=== PATIENT | female | born 1990 | race Caucasian/White ===

== ENCOUNTER 2017-10-12 08:53 | Outpatient (CLI) | payer MEDICAID, SELFPAY ==
[2017-10-12 09:17] LABS: HCT 32.9 % (36.0-46.0); HGB 11.3 g/dL (12.0-15.5); Mean Corp. HGB Concentration 34.3 g/dL (32.0-36.0); Mean Corpuscular Hemoglobin 32.8 pg (27.0-33.0); Mean Corpuscular Volume 95.6 fL (80-95); Mean Platelet Volume 9.8 fL (8.0-11.0); Platelet Count 302 x1000/uL (130-400); RBC 3.44 m/cumm (4.00-5.20); RBC Distribution Width 12.6 % (11.7-14.6); White Blood Cell Count 11.36 k/cumm (4.4-10.8)
[2017-10-12 09:24] LABS: Glucose,1 Hr (Glucola) 100 mg/dL (80-140)
== END 2017-10-12 09:13 ==
PROVIDERS: Obstetrics & Gynecology; Obstetrics & Gynecology Gynecology; PCP Family Medicine; Visit Provider Obstetrics & Gynecology
DX: Z34.92 Encounter for supervision of normal pregnancy, unspecified, second trimester (principal)
CPT/HCPCS: 36415; 82950; 85027

== ENCOUNTER 2017-12-14 14:12 | Outpatient (REF) | payer MEDICAID, SELFPAY | END 2017-12-14 14:32 | LOC: LBN 14:12 | PROVIDERS: PCP Family Medicine; Visit Provider Advanced Practice Midwife | DX: Z34.93 Encounter for supervision of normal pregnancy, unspecified, third trimester (principal); Z36.85 Encounter for antenatal screening for Streptococcus B | CPT/HCPCS: 87081 ==

== ENCOUNTER 2017-12-27 11:05 | Observation (INO) | payer MEDICAID, SELFPAY ==
[2017-12-27 11:09] VITALS: BP 142/93; PULSE 97; RESP 20; TEMP 36.6; O2SAT 100
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
[2017-12-27 11:40] VITALS: BP 142/93; PULSE 97; RESP 20; TEMP 36.6; O2SAT 100
== END 2017-12-27 12:40 | disposition home or self-care (01) ==
LOC: ER 11:46 → OBS 11:50
PROVIDERS: Admitting Provider Obstetrics & Gynecology; Emergency Provider Student in an Organized Health Care Education/Training Program; PCP Family Medicine; Visit Provider Obstetrics & Gynecology
DX: O36.8190 Decreased fetal movements, unspecified trimester, not applicable or unspecified (principal)
CPT/HCPCS: 99285; 59025; 99283

== ENCOUNTER 2018-01-02 22:45 | Inpatient (IN) | payer MEDICAID, SELFPAY ==
[2018-01-03 00:06] LABS: ROM Plus Positive
[2018-01-03 00:44] LABS: HCT 33.2 % (36.0-46.0); HGB 11.4 g/dL (12.0-15.5); Mean Corp. HGB Concentration 34.3 g/dL (32.0-36.0); Mean Corpuscular Hemoglobin 31.3 pg (27.0-33.0); Mean Corpuscular Volume 91.2 fL (80-95); Mean Platelet Volume 11.4 fL (8.0-11.0); Platelet Count 223 x1000/uL (130-400); RBC 3.64 m/cumm (4.00-5.20); RBC Distribution Width 13.7 % (11.7-14.6); White Blood Cell Count 9.02 k/cumm (4.4-10.8)
[2018-01-03] MEDS: Normal Saline Flush 10 ML SYR IVP (07:57)
[2018-01-03] MEDS: Lactated Ringers 1,000 ML 125 ML IV ×2 (07:57→15:02)
[2018-01-03] MEDS: Hamamelis Leaf/Glycerin 100 EACH BOX PR (19:01)
[2018-01-04 07:46] LABS: HCT 31.3 % (36.0-46.0); HGB 10.5 g/dL (12.0-15.5); Mean Corp. HGB Concentration 33.5 g/dL (32.0-36.0); Mean Corpuscular Hemoglobin 30.8 pg (27.0-33.0); Mean Corpuscular Volume 91.8 fL (80-95); Mean Platelet Volume 11.8 fL (8.0-11.0); Platelet Count 221 x1000/uL (130-400); RBC 3.41 m/cumm (4.00-5.20); RBC Distribution Width 13.7 % (11.7-14.6); White Blood Cell Count 11.32 k/cumm (4.4-10.8)
--- NOTE | 2018-01-04 11:35 | W.PM.PROGNOT ---
Date of Service Date of service: 01/04/18 Time of Service: 11:35 Assessment and Plan (1) (spontaneous vaginal delivery): Current visit: Yes Status: Acute PPD #1 stable continue routine care (2) Anemia: Start date: 01/04/18 Current visit: Yes Status: Chronic will begin iron and make sure she is on stool softner iron containing foods Subjective Patient reports: no new complaints, tolerating a regular diet and flatus Interval history since last seen: doing well cramping with well light lochia no laceration urinating well without discomfort Exam Const General: cooperative, healthy appearing and comfortable Chest Breast palpation: normal palpation of the breasts Speculum Exam - Vagina: other Other: fundus firm at umbilicus Objective Objective Clinical Data: Abnormal lab results 01/04/18 Range/Units 06:30 WBC 11.32 H (4.4-10.8) k/cumm RBC 3.41 L (4.00-5.20) m/cumm Hgb 10.5 L (12.0-15.5) g/dL Hct 31.3 L (36.0-46.0) % MPV 11.8 H (8.0-11.0) fL Intake & Output 01/03/18 01/03/18 01/04/18 11:59 23:59 11:59 Intake Total 1052.4 / 1052.4 Balance 1052.4 / 1052.4 Weight 70.9 kg Intake: IV 1052.4 / 1052.4 Laboratory Results WBC 11.32 k/cumm (4.4-10.8) H 01/04/18 06:30 RBC 3.41 m/cumm (4.00-5.20) L 01/04/18 06:30 Hgb 10.5 g/dL (12.0-15.5) L 01/04/18 06:30 Hct 31.3 % (36.0-46.0) L 01/04/18 06:30 MCV 91.8 fL (80-95) 01/04/18 06:30 MCH 30.8 pg (27.0-33.0) 01/04/18 06:30 MCHC 33.5 g/dL (32.0-36.0) 01/04/18 06:30 RDW 13.7 % (11.7-14.6) 01/04/18 06:30 Plt Count 221 x1000/uL (130-400) 01/04/18 06:30 MPV 11.8 fL (8.0-11.0) H 01/04/18 06:30 Membranes Rupture Positive 01/02/18 23:20 Patient ABO/Rh B Positive 01/03/18 00:30 Antibody Screen Negative 01/03/18 00:30
[2018-01-04] MEDS: Ibuprofen 600 MG TAB PO (21:49)
== END 2018-01-05 11:55 | disposition home or self-care (01) | DRG 807 ==
PROVIDERS: Obstetrics & Gynecology; Admitting Provider Obstetrics & Gynecology Gynecology; PCP Family Medicine; Visit Provider Obstetrics & Gynecology Gynecology
DX: O42.02 Full-term premature rupture of membranes, onset of labor within 24 hours of rupture (principal); Z37.0 Single live birth; Z3A.39 39 weeks gestation of pregnancy
CPT/HCPCS: 84112; 85027; 86850; 86900; 86901; NC; J3490

== ENCOUNTER 2022-12-24 07:04 | Emergency (ER) | payer MEDICAID, SELFPAY ==
[2022-12-24 07:07] VITALS: BP 153/95; PULSE 66; RESP 22; TEMP 36.6; O2SAT 99
--- NOTE | 2022-12-24 07:15 | DI.CT_ITS ---
Exam(s) CT ABDOMEN PELVIS WO EXAM: CT ABDOMEN PELVIS WO CLINICAL HISTORY: left lower back pain, hx kidney stones. TECHNIQUE: Imaging Protocol: Axial computed tomography images with coronal and sagittal reformatted images were created and reviewed. Oral: / no COMPARISON: None FINDINGS: ABDOMEN: Lung Bases: No acute findings. Liver: Normal density. No measurable mass. Gallbladder and biliary tract: No radiodense calculus or dilation. Pancreas: Normal density, no abnormal calcifications or inflammatory process. Spleen: Normal. Kidneys: Normal size, contour and axis. Six millimeter stone distal left ureter causing mild to mode rate left hydronephrosis. Mild left perinephric stranding. Mild left renal edema. Some stranding a round left renal pelvis no masses seen. Mildly increased density in the medullary region of both ki dneys consistent mild medullary nephrocalcinosis. Left kidney shows duplex collecting system. Adrenal glands: No masses seen. Lymph nodes: Within normal limits. Abdominal Aorta: Abdominal portion non-dilated. PELVIS: Bladder: No wall thickening. No mass or calculi. Bowel: No obstruction or bowel wall thickening. Peritoneal cavity: No ascites, collection or mesenteric inflammatory response. Reproductive organs: Within normal limits. Bones: Unremarkable for age.. IMPRESSION: 6 millimeter stone at left ureterovesical junction causing [id number] left hydronephrosis. Mild medullary nephrocalcinosis. RADIATION DOSE DELIVERED: Total DLP DATA REPOSITORY: All CT scans at this facility are submitted to the National Radiology Data Registry (NRDR) Dose Index Registry (DIR) with the [employer] ([employer]). RADIATION OPTIMIZATION: All CT scans at this facility use at least one of these dose optimization te chniques: automated exposure control; mA and/or kV adjustment per patient size (includes targeted exa ms where dose is matched to clinical indication); or iterative reconstruction.
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
[2022-12-24] MEDS: Ketorolac 15 MG/ML VIAL IVP ×2 (07:44→11:09)
[2022-12-24] MEDS: Normal Saline 1,000 ML 1000 ML IV (07:44)
[2022-12-24 07:47] LABS: Abs Immature Grans 0.03 10^3/uL (0.0-0.06); Absolute Basophil Count 0.03 10^3/uL (0.0-0.2); Absolute Eosinophil Count 0.11 10^3/uL (0.0-0.7); Absolute Lymphocyte Count 1.45 10^3/uL (1.2-3.4); Absolute Monocyte Count 0.73 10^3/uL (0.1-0.8); Absolute Neutrophil Count 7.25 10^3/uL (1.2-6.7); Basophils % 0.3; Eosinophils % 1.1; HCT 39.5 % (36.0-46.0); Immature Grans % 0.3; Lymphocytes % 15.1; MCH 31.9 pg (27.0-33.0); MCHC 35.4 % (32.0-36.0); MCV 90 fL (80-95); MPV 10.2 fL (8.0-11.0); Monocytes % 7.6; Neutrophils % 75.6; Platelet Count 275 10^3/uL (130-400); RBC 4.39 10^6/uL (3.93-5.22); RDW 12.2 % (11.7-14.6)
[2022-12-24 07:49] LABS: Bilirubin Negative (Negative); Blood Trace-intact (Negative); Clarity Sl Cloudy (Clear); Glucose Negative (Negative); Ketones Negative (Negative); Leukocyte Esterase Moderate (Negative); Nitrite Negative (Negative); Urobilinogen 0.2 mg/dL (Up to 0.2); pH 6.5 (5-8)
[2022-12-24 08:03] LABS: Bacteria Few HPF (Negative); C & S Indicated? No/Sq. Contamination; Casts Negative LPF (Negative); Crystals Negative HPF (Negative); Epithelial Cells Many HPF (Negative); Mucus Trace (Negative); WBC >50 HPF (0-5)
[2022-12-24 08:04] LABS: ALT 17 U/L (14-59); AST 11 U/L (15-37); Alkaline Phosphatase 56 U/L (46-116); BUN 7 mg/dL (7-18); CREATININE 0.7 mg/dL (0.55-1.02); Calcium 9.2 mg/dL (8.5-10.1); Chloride 104 mmol/L (98-107); Estimated GFR 117.04 (mL/min/1.73m2); Glucose 111 mg/dL (74-106); Potassium 3.4 mmol/L (3.5-5.1); Sodium 138 mmol/L (136-145); Total Protein 7.5 g/dL (6.4-8.2)
[2022-12-24] MEDS: Cefpodoxime 200 MG TAB PO (08:25)
[2022-12-24] MEDS: Tamsulosin 0.4 MG CAPCR PO (08:25)
--- NOTE | 2022-12-24 09:28 | DI.VRAD_ITS ---
PROCEDURE INFORMATION: Exam: CT Abdomen And Pelvis Without Contrast Exam date and time: 12/24/2022 9:11 AM Age: 32 years old Clinical indication: Other: Left lower back pain HX kidney stones TECHNIQUE: Imaging protocol: Computed tomography of the abdomen and pelvis without contrast. Radiation optimization: All CT scans at this facility use at least one of these dose optimization techniques: automated exposure control; mA and/or kV adjustment per patient size (includes targeted exams where dose is matched to clinical indication); or iterative reconstruction. COMPARISON: OB US 2-3 TRIMESTER TRANSABD*P 08/28/2017 4:31 PM FINDINGS: Liver: Normal. No mass. Gallbladder and bile ducts: Normal. No calcified stones. No ductal dilation. Pancreas: Normal. No ductal dilation. Spleen: Normal. No splenomegaly. Adrenal glands: Normal. No mass. Kidneys and ureters: 5 millimeter distal LEFT ureteral calculus causes dilatation of LEFT collecting system and LEFT ureter. The LEFT kidney is edematous and there is LEFT perirenal stranding. Nonobstructing right renal calculi. Increased density in the medullary regions in the right kidney may represent medullary nephrocalcinosis Stomach and bowel: Unremarkable. No obstruction. No mucosal thickening. Appendix: Normal appendix Intraperitoneal space: Unremarkable. No free air. No significant fluid collection. Vasculature: Unremarkable. No abdominal aortic aneurysm. Lymph nodes: Unremarkable. No enlarged lymph nodes. Urinary bladder: Unremarkable as visualized. Reproductive: Unremarkable as visualized. Bones/joints: Unremarkable Soft tissues: Unremarkable. IMPRESSION: 5 millimeter distal LEFT ureteral calculus causes dilatation of LEFT collecting system and LEFT ureter. The LEFT kidney is edematous and there is LEFT perirenal stranding. Dictated and Authenticated by: Laure Keen MD. Ordering:MOISES Galdamez MD
== END 2022-12-24 11:14 | disposition home or self-care (01) ==
PROVIDERS: Emergency Provider Emergency Medicine; PCP Family Medicine
DX: N13.2 Hydronephrosis with renal and ureteral calculous obstruction (principal); E83.59 Other disorders of calcium metabolism; N29 Other disorders of kidney and ureter in diseases classified elsewhere; F17.210 Nicotine dependence, cigarettes, uncomplicated
CPT/HCPCS: 80053; 96361; 96374; 96376; 99283; 99284; 74176; 81003; 81015; 85025; J1885

== ENCOUNTER 2023-03-12 12:06 | Day surgery (SDC) | payer MEDICAID, SELFPAY ==
[2023-03-12] VITALS (11 sets, daily range): BP systolic 87–131; BP diastolic 58–76; PULSE 56–76; RESP 13–18; TEMP 36.6–37; O2SAT 97–100; BMI 19.5
--- NOTE | 2023-03-12 03:30 | DI.CT_ITS ---
Exam(s) CT ABDOMEN PELVIS W EXAM: CT ABDOMEN PELVIS W CLINICAL HISTORY: left flank pain, r/o stone. TECHNIQUE: Imaging Protocol: Axial computed tomography images with coronal and sagittal reformatted images were created and reviewed CONTRAST MATERIAL: Intravenous: Omnipaque-350 100cc Oral: None COMPARISON: CT CT ABDOMEN PELVIS WO from 12/24/2022 FINDINGS: VISUALIZED LUNG BASES: No nodules nor pleural effusions evident. ABDOMEN: There is no ascites. LIVER: There are no focal hepatic lesions evident. There are mildly dilated intrahepatic ducts. The CBD is not dilated. GALLBLADDER/BILIARY: No obvious gallbladder pathology. CBD is not dilated. PANCREAS: No evidence of pancreatic mass nor dilatation of the pancreatic duct. SPLEEN: Spleen is not enlarged. No obvious intrasplenic lesions. Splenic and portal veins are paten t. ADRENALS: There are no significant adrenal masses. KIDNEYS:There an obstructing calculus in the lower left ureter at the UVJ junction again noted, measu ring 6 x 4 mm and with dilatation left ureter and left hydronephrosis above this level. There are no remaining radiopaque calculi in the left kidney. No masses nor cysts in left kidney. Tiny cortical cyst in the inferior pole the right kidney measuring 5 mm noted. This does not require further inve stigation. There is a punctate 1 millimeter nonobstructive calculus in the right kidney noted. Urin junior bladder is collapsed but there are no obvious additional calculi in the bladder lumen. ABDOMINAL AORTA: Abdominal aorta is not enlarged. LYMPH NODES:There is no retroperitoneal nor paraaortic adenopathy. ABDOMINAL WALL: No evidence of significant anterior abdominal wall nor inguinal hernia. GI: There is no evidence of bowel obstruction, free air, nor abscess. PELVIS: GI: No evidence of appendicitis.No evidence of sigmoid diverticulitis. LYMPH NODES: There is no intrapelvic nor inguinal adenopathy. REPRODUCTIVE: Uterus age-appropriate. There is a right ovarian cyst measuring 2 x 1.7 cm, probably f ollicular. No free fluid. URINARY BLADDER: No calculi nor obvious masses evident OSSEOUS: No fractures and no significant osseous lesions. IMPRESSION: 1. Compared to the prior CT scan of 12/24/2022 there is again noted a 6 x 4 millimeter obstructing ca lculus at the left ureterovesical junction with hydronephrosis and hydroureter above this level again noted. RADIATION DOSE DELIVERED: 512.03mGy.cm Total DLP DATA REPOSITORY: All CT scans at this facility are submitted to the National Radiology Data Registry (NRDR) Dose Index Registry (DIR) with the [employer] (ACR). RADIATION OPTIMIZATION: All CT scans at this facility use at least one of these dose optimization te chniques: automated exposure control; mA and/or kV adjustment per patient size (includes targeted exa ms where dose is matched to clinical indication); or iterative reconstruction.
[2023-03-12] MEDS: ACETAMINOPHEN 1,000 MG/100 ML BTL 400 MG IVPB (03:49)
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
[2023-03-12 03:56] LABS: Abs Immature Grans 0.05 10^3/uL (0.0-0.06); Absolute Basophil Count 0.06 10^3/uL (0.0-0.2); Absolute Eosinophil Count 0.26 10^3/uL (0.0-0.7); Absolute Lymphocyte Count 2.03 10^3/uL (1.2-3.4); Absolute Monocyte Count 0.77 10^3/uL (0.1-0.8); Basophils % 0.6; Eosinophils % 2.5; HCT 38.7 % (36.0-46.0); HGB 13.4 g/dL (11.2-15.7); Immature Grans % 0.5; Lymphocytes % 19.2; MCH 32.1 pg (27.0-33.0); MCHC 34.6 % (32.0-36.0); MCV 93 fL (80-95); MPV 9.9 fL (8.0-11.0); Monocytes % 7.3; Neutrophils % 69.9; Platelet Count 274 10^3/uL (130-400); RBC 4.17 10^6/uL (3.93-5.22); RDW 12.6 % (11.7-14.6); RDW-SD 43.3 fL; WBC 10.57 10^3/uL (4.4-10.8)
[2023-03-12 03:57] LABS: Bilirubin Negative (Negative); Blood Moderate (Negative); Clarity Sl Cloudy (Clear); Glucose Negative (Negative); Ketones Negative (Negative); Leukocyte Esterase Moderate (Negative); Nitrite Negative (Negative); Specific Gravity >= 1.030 (1.005-1.025); Urobilinogen 0.2 mg/dL (Up to 0.2)
[2023-03-12 04:05] LABS: Bacteria Moderate HPF (Negative); C & S Indicated? Yes; Crystals Few Amorphous HPF (Negative); Epithelial Cells Few HPF (Negative); Mucus Negative (Negative); WBC >50 HPF (0-5)
[2023-03-12] MEDS: Omnipaque 350 MG/ML 100 ML BTL IJ ×2 (04:05→11:14)
[2023-03-12] MEDS: Normal Saline - Diluent 50 ML VIAL IJ (04:06)
[2023-03-12] MEDS: Normal Saline Flush 10 ML SYR IVP (04:07)
[2023-03-12 04:11] LABS: ALT 38 U/L (14-59); AST 21 U/L (15-37); Albumin 3.7 g/dL (3.4-5.0); Alkaline Phosphatase 49 U/L (46-116); Anion Gap 12.2 mmol/L (3-11); BUN 7 mg/dL (7-18); Bilirubin, Total 0.8 mg/dL (0.2-1.0); CO2 24.8 mmol/L (21.0-32.0); CREATININE 0.7 mg/dL (0.55-1.02); Calcium 8.6 mg/dL (8.5-10.1); Chloride 104 mmol/L (98-107); Estimated GFR 117.04 (mL/min/1.73m2); Glucose 137 mg/dL (74-106); Potassium 3.5 mmol/L (3.5-5.1); Sodium 141 mmol/L (136-145); Total Protein 6.7 g/dL (6.4-8.2)
--- NOTE | 2023-03-12 04:39 | DI.VRAD_ITS ---
PROCEDURE INFORMATION: Exam: CT Abdomen And Pelvis With Contrast Exam date and time: 03/12/2023 4:08 AM Age: 32 years old Clinical indication: Patient HX: L flank pain, R/O stone, HX kidney stones TECHNIQUE: Imaging protocol: Computed tomography of the abdomen and pelvis with contrast. Radiation optimization: All CT scans at this facility use at least one of these dose optimization techniques: automated exposure control; mA and/or kV adjustment per patient size (includes targeted exams where dose is matched to clinical indication); or iterative reconstruction. Contrast material: OMNIPAQUE 350; Contrast volume: 70 ml; Contrast route: INTRAVENOUS (IV); COMPARISON: CT ABDOMEN PELVIS WO 12/24/2022 9:11 AM FINDINGS: Liver: Normal. No mass. Gallbladder and bile ducts: Normal. No calcified stones. No ductal dilation. Pancreas: Unremarkable. Spleen: Normal. Adrenal glands: Normal. No mass. Kidneys and ureters: 7 mm obstructing stone at the left UVJ causing mild obstructive uropathy. Stomach and bowel: Unremarkable. No bowel wall thickening or intestinal obstruction. Appendix: Normal appendix. Intraperitoneal space: Unremarkable. No pneumoperitoneum. No abscess. Vasculature: Unremarkable. Lymph nodes: Unremarkable. Urinary bladder: Unremarkable as visualized. Reproductive: 2.1 cm right ovarian cyst/dominant follicle. Bones/joints: Unremarkable. No acute fracture. Soft tissues: Unremarkable. IMPRESSION: 1. 7 mm obstructing stone at the left UVJ causing mild obstructive uropathy. 2. 2.1 cm right ovarian cyst/dominant follicle. Dictated and Authenticated by: Tenzin Tejada MD. Ordering:TAYLA Owusu MD
[2023-03-12] MEDS: CEFEPIME 2 GM in Normal Saline 100 ML IVPB (04:46)
[2023-03-12] MEDS: MORPHine 4 MG/ML SYR IVP ×2 (04:49→06:06)
[2023-03-12] MEDS: Ketorolac 15 MG/ML VIAL IVP (04:51)
[2023-03-12] MEDS: Normal Saline 1,000 ML 1000 ML IV (04:52)
[2023-03-12] MEDS: Tamsulosin 0.4 MG CAPCR PO (04:53)
[2023-03-12] MEDS: Ondansetron 4 MG/2 ML VIAL IVP ×2 (06:05→09:48)
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
[2023-03-12] MEDS: Lactated Ringers 1,000 ML 30 ML IV (09:20)
--- NOTE | 2023-03-12 10:09 | ANES.PREOP_ITS ---
General Info Date of Service Date Performed: 03/12/23 Height: 5 ft 2 in Weight: 48.534 kg Body Mass Index (BMI): 19.5 Surgical Procedure: Operation Date: 03/12/23 09:55 Proposed Procedure Side Surgeon p Cystoscopy/Laser/Retrograde/Possible Ureteroscopy/ Stent Placement Left Ignacio Posey MD Meds Allergies and Home Medications Allergies Allergy/AdvReac Type Severity Reaction Status Date / Time No Known Allergies Allergy Unverified 03/12/23 07:19 Current Visit Medications: Current Medications Generic Name Dose Route Start Last Admin Trade Name Freq PRN Reason Stop Dose Admin Iohexol 100 ml 03/12/23 04:15 03/12/23 04:05 Omnipaque 350 Mg/Ml 100 Ml Btl IJ 04/11/23 23:59 70 ml DIRECTED NINA Administration Sodium Chloride 50 ml 03/12/23 04:15 03/12/23 04:06 Normal Saline - Diluent 50 Ml Vial IJ 50 ml .FOR DI USE NINA Administration Sodium Chloride 0 ml 03/12/23 04:07 03/12/23 04:07 Normal Saline Flush 10 Ml Syr IVP 10 ml PRN PRN Administration PFSH Active Problems Active Problems: Problem Status Onset Code Kidney stone on left side N20.0 Urinary tract infection N39.0 Missed menses N92.6 labor third trimester with delivery third trimester Missed menses N92.6 Tobacco use 05/19/15 Z72.0 Marijuana use 05/19/15 F12.90 Z34.90 Medical History Medical History Anemia 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 No sequelae. Nephrolithiasis Rx with laser lithotripsy 2011 Surgical History Surgical History coronal synostosis surgery at age 3mo. Ureteroscopy, EHL, or Laser Lithotripsy 2011 Tobacco Smoking/Tobacco Use Status: Current every day Tobacco Type: cigarettes Alcohol Alcohol Intake: never Substance Use Substance use: Daily Substance use type: marijuana Prental History History 2 2 Para 2 Hx # Term Pregnancies 0 Multiple births Hx # Pregnancies 1 Ectopic pregnancies AB induced Hx Number of Living Children 2 AB spontaneous Past Pregnancies Del. Date GA/Weeks # Preg Succ Route Wgt Sex Labor Lgth Anesth esia Location Prov Complic Unknown 39 No vaginal 3401.943 g Female 9 hrs Vital Signs and Lab Results Vital Signs Most Recent Vital Signs in EMR: Most Recent Vital Signs Temp Pulse Resp BP Pulse Ox 37 C 66 16 100/62 99 03/12/23 08:47 03/12/23 08:47 03/12/23 03:30 03/12/23 08:47 03/12/23 08:47 Point of Care Results Point of Care Results: POC- Test(urine) Negative 03/12/23 03:49 Lab Results 03/12/23 03:49 03/12/23 03:49 Blood Type / Crossmatch: 2 No Data to Display Complete Blood Count: 2 White Blood Count 10.57 10^3/uL (4.4-10.8) 03/12/23 03:49 Red Blood Count 4.17 10^6/uL (3.93-5.22) 03/12/23 03:49 Hemoglobin 13.4 g/dL (11.2-15.7) 03/12/23 03:49 Hematocrit 38.7 % (36.0-46.0) 03/12/23 03:49 Platelet Count 274 10^3/uL (130-400) 03/12/23 03:49 Complete Metabolic Panel: 2 Sodium 141 mmol/L (136-145) 03/12/23 03:49 Potassium 3.5 mmol/L (3.5-5.1) 03/12/23 03:49 Chloride 104 mmol/L (98-107) 03/12/23 03:49 Carbon Dioxide 24.8 mmol/L (21.0-32.0) 03/12/23 03:49 BUN 7 mg/dL (7-18) 03/12/23 03:49 Creatinine 0.7 mg/dL (0.55-1.02) 03/12/23 03:49 Est GFR (CKD-EPI 2020) 117.04 (mL/min/1.73m2) 03/12/23 03:49 Calcium 8.6 mg/dL (8.5-10.1) 03/12/23 03:49 Albumin 3.7 g/dL (3.4-5.0) 03/12/23 03:49 Glucose 137 mg/dL (74-106) H 03/12/23 03:49 Liver Function Panel: 2 Alanine Aminotransferase (ALT/SGPT) 38 U/L (14-59) 03/12/23 03: 49 Aspartate Amino Transf (AST/SGOT) 21 U/L (15-37) 03/12/23 03:49 Coagulation Panel: 2 No Data to Display Cardiac Panel: 2 No Data to Display Arterial Blood Gas: 2 No Data to Display Venous Blood Gas: 2 No Data to Display Pancreas Panel: 2 No Data to Display Thyroid Panel: 2 No Data to Display Infectious Disease: 2 No Data to Display Blood Cultures: 2 No Data to Display Toxicology Panel: 2 No Data to Display Panel: 2 No Data to Display Anesthesia Assessment and Plan Anesthesia History Personal History: No History of Anesthesia Complications Family History: No Family History of Anesthesia Complications Exercise Tolerance Exercise Tolerance: Metabolic Equivalents>4 Pertinent Negatives Pertinent Negatives: No Symptoms of GERD, No Major Cardiovascular Symptoms or Complaints, No Major Pulmonary Symptoms or Complaints and No History of CVA/TIA Cardiac & Pulmonary Exam Cardiac Exam: Normal S1/S2 Heart Sounds Pulmonary Exam: Clear Bilateral Breath Sounds Implantable Cardiac Device Does patient have a Pacemaker or an ICD?: No Airway Exam Known Difficult Airway: No Mallampati Class: 2 Mouth Opening: Normal (> 3cm) Thyromental Distance: Greater than 3 cm Neck Range of Motion: Full ROM Neck Circumference: Normal Teeth Condition: Removable Dentures/Plates Upper and Removable Dentures/Plates Lower ASA Classification ASA Score: ASA 2 Emergency Case?: Yes NPO Status NPO Status: NPO Clear Liquids>2 hours (N/V) Status Status: Negative HCG Anesthesia Plan Resuscitation Status: Full Code Anesthesia Technique: General Anesthesia Airway Planned: Endotracheal Tube Monitors Used: Standard Monitors and SedLine Preoperative Comments:: pt experiencing preop nausea- RSI indicated
--- NOTE | 2023-03-12 10:15 | DI.RAD_ITS ---
Exam(s) XR RETROGRADE IN OR EXAM: XR RETROGRADE IN OR CLINICAL HISTORY: Left side Kidney Stone. TECHNIQUE: Fluoroscopy was provided for the referring physician for guidance with performing retrogr jossy procedure. COMPARISON: CT CT ABDOMEN PELVIS W from 03/12/2023 FINDINGS: Please see procedure note for details. Fluoro time: 13 seconds RADIATION DOSE DELIVERED: zaire Dela Cruz=1.32 mGy
[2023-03-12] MEDS: Lidocaine 2% Jelly 6 ML SYR (11:10)
--- NOTE | 2023-03-12 11:24 | W.PM.DSUDISC ---
Date of service: 03/12/23 Time of Service: 11:24 Discharge Plan Disposition Patient Disposition: Home Condition: Stable Discharge Details Clinical Impression: Urinary tract infection, Kidney stone on left side Primary Care Provider: Nj Ling ED Provider: Umer Muniz Home Meds and New Rx's Prescriptions: New tramadol 50 mg tablet 50 mg PO Q6H PRN (Reason: pain) Qty: 15 0RF sulfamethoxazole-trimethoprim [Bactrim DS] 800-160 mg tablet 1 tab PO BID Qty: 14 0RF Discharge Instructions Additional Instructions: you have a ureteral stent that has a string attached - the string comes through the urethra and the end of the string is tucked into the vagina it is not unusual to see blood in the urine or have some discomfort with urination while the stent is in place followup appt to have stent removed in 3 to 7 days (tell my office there is a string on the stent) followup appt for renal US in office in 6 to 8 weeks no need to strain urine Discharge Data Discharge Physician: Ignacio Posey DS: Diagnosis Discharge Diagnosis (1) Kidney stone on left side: Status: Acute (2) Urinary tract infection: Status: Acute
--- NOTE | 2023-03-12 11:37 | W.PM.OP ---
Date of service: 03/12/23 Time of Service: 11:37 Operative Note Operative Note DATE OF PROCEDURE: 03/12/23 PRE-OP DIAGNOSIS: Left ureteral stone POST-OP DIAGNOSIS: same UTI PROCEDURE: Cystoscopy, left ureteral dilation, left semirigid ureteroscopy with stone extraction, insert left ureteral stent SURGEON: Ignacio Posey ANESTHESIA TYPE: Local By Surgeon and General LMA/ETT Refer to Anesthesia Record ESTIMATED BLOOD LOSS: 5 PATHOLOGY: other (stone for chemical analysis) COMPLICATIONS: None Patient was transported to: PACU Patient's condition: stable Implants: 6 Martiniquais by 22 to 30 cm left ureteral stent Indications: This is a 32-year-old woman who has a past history of kidney stones. She presented to our emergency department about 3 months ago with a left distal ureteral stone. As far as she knows, she did not pass the stone identified at that time. She came back to the emergency department early this morning with recurrent left flank pain. She is found to have left hydronephrosis and a left distal ureteral stone. Her urinalysis is concerning for the presence of an infection, so she presents for an urgent cystoscopy with stent placement. Findings: Residual contrast in the left ureter down to the level of her stone Left distal ureteral stone Procedure Description: The patient was given antibiotics in the emergency department. She was brought to the operating room on 03/12/2023. After successful induction of general anesthesia, she was placed in the dorsal lithotomy position. Her genitalia was prepped and draped sterilely. 2% Xylocaine jelly was instilled into the urethra to act as a local anesthetic. A 22 Martiniquais rigid cystoscope was passed through the urethra into the bladder. The bladder was inspected with a 30 degree lens. The right ureteral orifice appeared normal. The left hemitrigone was edematous but I was able to visualize the left ureteral orifice. I used a 5 Martiniquais access catheter to allow me to pass a guidewire through the lumen of the catheter and into the left ureteral orifice. Once the wire was successfully passed, a hydronephrotic drip could be seen coming from the left kidney. I then removed the access catheter and passed a UroMax balloon over the wire. We dilated the distal ureter under fluoroscopic guidance. The balloon was then deflated and removed. I was then able to pass a semirigid ureteroscope through the urethra and into the left ureteral orifice. The scope was advanced until the stone was visualized. The stone was grasped and a 0 tip stone basket and removed. The stone was then sent to pathology for chemical analysis. The ureteroscope was removed a 6 Martiniquais variable length stent was then advanced over the wire. The proximal end of the stent was curled in the renal pelvis and the distal end was curled within the bladder. The positioning of the stent was confirmed both fluoroscopically and cystoscopically. The safety string was left on the ureteral stent. The string was brought through the urethral meatus. The end of the staring was tucked into the patient's vaginal cavity. She tolerated the procedure well with no complications. She was taken to the recovery room in stable condition.
--- NOTE | 2023-03-12 11:37 | W.ANESPOSTOP ---
Postoperative Evaluation Date, Time and Location Date Performed: 03/12/23 Time Performed: 11:37 Patient Location: PACU Vital Signs Most Recent Imported Vital Signs: Temp Pulse Resp BP Pulse Ox 36.8 C 66 15 94/59 L 99 03/12/23 11:45 03/12/23 12:00 03/12/23 12:00 03/12/23 12:00 03/12/23 12:00 Pain Score Most Recent Pain Score: Most Recent Pain Score Pain Level 9 03/12/23 03:37 Assessment Mental Status: Awake (Alert & Oriented to Patient Baseline) Airway and Respiratory Function: Patent airway with normal (patient baseline) respiratory exam Cardiovascular Function: Hemodynamically Stable Hydration Status: Adequately Hydrated Nausea & Vomiting: No Nausea or Vomiting Pain: Pt. Denies Any Pain Peripheral Nerve Block: Patient did not receive a nerve block
[2023-03-17 17:08] LABS: Source: Left Kidney
== END 2023-03-12 13:35 | disposition home or self-care (01) ==
LOC: SUR 13:25
PROVIDERS: Student in an Organized Health Care Education/Training Program; PCP Family Medicine; Visit Provider Urology
PROC: (CPT 52352; principal; 2023-03-12 09:45)
DX: N20.1 Calculus of ureter (principal); F17.210 Nicotine dependence, cigarettes, uncomplicated; F12.90 Cannabis use, unspecified, uncomplicated
CPT/HCPCS: 52352; 52332; 76000; 80053; 87077; 74177; 74420; 81003; 81015; 82365; 85025; 87086; 87186; J0131; J0692; J1100; J1885; J2001; J2270; J2405; J2704; J3490

== ENCOUNTER 2023-06-26 05:08 | Outpatient (CLI) | payer MEDICAID, SELFPAY ==
[2023-06-26 14:43] LABS: Abs Immature Grans 0.03 10^3/uL (0.0-0.06); Absolute Basophil Count 0.03 10^3/uL (0.0-0.2); Absolute Eosinophil Count 0.07 10^3/uL (0.0-0.7); Absolute Monocyte Count 0.63 10^3/uL (0.1-0.8); Absolute Neutrophil Count 5.46 10^3/uL (1.2-6.7); Basophils % 0.4 %; Eosinophils % 0.9 %; HCT 34.9 % (36.0-46.0); HGB 12.3 g/dL (11.2-15.7); Immature Grans % 0.4 %; Lymphocytes % 23.4 %; MCH 32.5 pg (27.0-33.0); MCHC 35.2 % (32.0-36.0); MCV 92 fL (80-95); MPV 10.5 fL (8.0-11.0); Monocytes % 7.8 %; Neutrophils % 67.1 %; Platelet Count 278 10^3/uL (130-400); RBC 3.78 10^6/uL (3.93-5.22); RDW 12.5 % (11.7-14.6); RDW-SD 42.5 fL; WBC 8.12 10^3/uL (4.4-10.8)
[2023-06-26 15:42] LABS: TSH (W/Ref FT4) 0.75 uIU/mL (0.36-3.74)
[2023-06-26 22:58] LABS: Hepatitis B Surface Ag Negative (Negative)
[2023-06-26 23:28] LABS: Hepatitis C Ab w Rflx HCV PCR Negative (Negative)
[2023-06-27 09:43] LABS: HIV-1/2 Ag & Ab Screen Negative (Negative)
[2023-06-27 16:20] LABS: Varicella IgG Antibody Positive (See Note)
[2023-06-27 16:29] LABS: Rubella IgG Ab (UVM) Positive (See Note)
[2023-06-28 15:44] LABS: Syphilis IgG w/Reflex Nonreactive (Nonreactive)
== END 2023-06-26 05:09 | disposition home or self-care (01) ==
LOC: LBO 05:08
PROVIDERS: PCP Family Medicine; Visit Provider Advanced Practice Midwife
DX: Z34.91 Encounter for supervision of normal pregnancy, unspecified, first trimester (principal); Z3A.13 13 weeks gestation of pregnancy
CPT/HCPCS: 36415; 86787; 86803; 86850; 86900; 86901; 87340; 87389; 84443; 85025; 86762; 86780

== ENCOUNTER 2023-06-26 13:40 | Outpatient (REF) | payer MEDICAID, SELFPAY ==
--- NOTE | 2023-06-26 13:50 | PAPFT_PTH ---
PATIENT: Aviva Ibarra LOC: YRN U#:[id number] AGE/SX: 32/F ROOM: RE06/26/[address]: Alka Howell CNM : 1990 BED: DIS: 06/26/2023 SPEC #: [id number] RECD: 06/26/23 17:34 STATUS: MARYELLEN REQ #: [id number] KEIKO: 06/26/23 13:[address]: Alka Howell DEPT: [facility] Cytology RECD BY: Aletha Carrillo ENTERED: 06/26/23 17:34 SP TYPE: PAPFT OTHR DR: Nj Ling Tissues: 1 - CX/ENDOCX FOR PAP SMEARS Procedures: PAP THIN PREP/UVM Screening HPV DNA PROBE Comments: [id number] (CHLAMYDIA/GC)
[2023-06-26 15:53] LABS: *AMPHETAMINES SCREEN URINE Negative (Negative); *BARBITURATES SCREEN URINE Negative (Negative); *BENZODIAZEPINES SCREEN URINE Negative (Negative); Cannabinoids THC Positive (Negative); Cocaine Screen,Urine Negative (Negative); METHADONE URINE SCREEN Negative (Negative); OPIATES URINE SCREEN Negative (Negative); Tricyclic Antidepressants Negative (Negative)
[2023-06-27 15:25] LABS: Chlamydia Result Negative (Negative); GC Result Negative (Negative)
[2023-07-01 11:44] LABS: Buprenorphine Negative ng/mL (Cutoff: 5.0); Norbuprenorphine Negative ng/mL (Cutoff: 2.5)
== END 2023-06-26 13:41 | disposition home or self-care (01) ==
LOC: LBN 13:40
PROVIDERS: PCP Family Medicine; Visit Provider Advanced Practice Midwife
DX: Z34.91 Encounter for supervision of normal pregnancy, unspecified, first trimester (principal); Z3A.12 12 weeks gestation of pregnancy
CPT/HCPCS: 80307; 80348; 87491; 87591; 88142; 87086; 87624

== ENCOUNTER 2023-07-23 13:09 | Outpatient (REF) | payer MEDICAID, SELFPAY | END 2023-07-23 13:10 | disposition home or self-care (01) | LOC: LBN 13:09 | PROVIDERS: PCP Family Medicine; Visit Provider Advanced Practice Midwife | DX: R10.9 Unspecified abdominal pain (principal); R82.89 Other abnormal findings on cytological and histological examination of urine | CPT/HCPCS: 87077; 87086; 87186 ==

== ENCOUNTER → 2023-08-03 00:07 | Outpatient (CLI) | payer MEDICAID, SELFPAY ==
--- NOTE | 2023-08-03 06:45 | DI.US_ITS ---
Exam(s) US OB 2-3 TRIMESTER EXAM: US OB 2-3 TRIMESTER CLINICAL HISTORY: morphology, survey,z34.91. TECHNIQUE: Transabdominal obstetrical ultrasound performed. COMPARISON: US OB US 2-3 TRIMESTER TRANSABD*P from 08/28/2017 FINDINGS: Number of fetuses: 1 position: VARIED heart rate: 149bpm Placental location: There is a grade 1 anterior placenta. There is no evidence of previa. The place ntal tip is 3.9 cm from the internal os. No evidence of previa. Amniotic fluid index: Amount of fluid is within normal limits. ANATOMICAL SURVEY: Within normal limits. BIOMETRIC DATA: BPD: 4.28cm, 19weeks HC: 15.99cm, 18weeks 6days AC: 13.24cm, 18weeks 5days FL: 2.83cm, 18weeks 5days Cisterna magna: 2.9mm Cerebellum: 1.7cm Lateral ventricle: EFW: 254.49g, 0.56lb, 17.8% Composite Age: 18weeks 6days ZINA: 12/29/2023 Heart Rate: 149bpm ANATOMICAL SURVEY: Four-chambered heart: Unremarkable. RVOT: Unremarkable. LVOT: Unremarkable. Left-sided stomach: Unremarkable. urinary bladder: Unremarkable. Bilateral kidneys: Unremarkable. Three-vessel cord: Unremarkable. Cord insertion: Unremarkable. Posterior fossa: Unremarkable. ventricles: Unremarkable. nose/lips: Unremarkable. Palate: Unremarkable. spine: Unremarkable. Two arms and two legs: Unremarkable. IMPRESSION: 1. Single live intrauterine gestation as above. 2. Normal anatomic survey. DATA REPOSITORY:
--- NOTE | 2023-08-03 07:30 | DI.US_ITS ---
Exam(s) US RENAL EXAM: US RENAL CLINICAL HISTORY: right flank pain,n20.0,kidney stone on lt. TECHNIQUE: Finney scale, color and spectral Doppler were used. COMPARISON: CT CT ABDOMEN PELVIS W from 03/12/2023 FINDINGS: Renal size in cm: Right: 11.2. Left: 11.8. Echogenicity: Normal. Hydronephrosis: No. Cyst or mass: No. Nephrolithiasis: There is a small echogenic focus in the lower pole of the left kidney which may repr esent a nonobstructing stone. Other findings: None. Bladder:Normal. Ureteral jets: Right: Not visualized on this examination. Left: Not visualized on this examination. Prevoid vol:136 cc Postvoid vol:0 cc Renal color flow: Symmetric and within normal limits. IMPRESSION: 1. Question of a nonobstructing left lower pole renal calculus. 2. No evidence of right nephrolithiasis or hydronephrosis. DATA REPOSITORY:
== END ==
PROVIDERS: PCP Family Medicine; Visit Provider Advanced Practice Midwife
DX: Z34.91 Encounter for supervision of normal pregnancy, unspecified, first trimester (principal); Z34.90 Encounter for supervision of normal pregnancy, unspecified, unspecified trimester; N20.0 Calculus of kidney
CPT/HCPCS: 76770; 76805

== ENCOUNTER 2023-08-20 10:19 | Outpatient (REF) | payer MEDICAID, SELFPAY | END 2023-08-20 10:20 | disposition home or self-care (01) | LOC: LBN 10:19 | PROVIDERS: PCP Family Medicine; Visit Provider Advanced Practice Midwife | DX: N39.0 Urinary tract infection, site not specified (principal) | CPT/HCPCS: 87086 ==

== ENCOUNTER 2023-10-10 03:02 | Outpatient (CLI) | payer MEDICAID, SELFPAY ==
[2023-10-10 10:21] LABS: HGB 10.9 g/dL (11.2-15.7); MCH 33.1 pg (27.0-33.0); MCHC 35.2 % (32.0-36.0); MCV 94 fL (80-95); Platelet Count 253 10^3/uL (130-400); RBC 3.29 10^6/uL (3.93-5.22); RDW 12.5 % (11.7-14.6); RDW-SD 42.9 fL; WBC 9.04 10^3/uL (4.4-10.8)
[2023-10-10 10:33] LABS: Glucose,1 Hr (Glucola) 98 mg/dL (80-140)
== END 2023-10-10 03:03 | disposition home or self-care (01) ==
LOC: LBO 03:02
PROVIDERS: PCP Family Medicine; Visit Provider Advanced Practice Midwife
DX: Z34.93 Encounter for supervision of normal pregnancy, unspecified, third trimester (principal)
CPT/HCPCS: 36415; 82950; 85027

== ENCOUNTER 2023-10-10 09:45 | Outpatient (REF) | payer MEDICAID, SELFPAY ==
[2023-10-10 12:14] LABS: *AMPHETAMINES SCREEN URINE Negative (Negative); *BARBITURATES SCREEN URINE Negative (Negative); *BENZODIAZEPINES SCREEN URINE Negative (Negative); Cannabinoids THC Positive (Negative); Cocaine Screen,Urine Negative (Negative); METHADONE URINE SCREEN Negative (Negative); OPIATES URINE SCREEN Negative (Negative); Tricyclic Antidepressants Negative (Negative)
[2023-10-11 13:16] LABS: Fentanyl Scr w/Rfx Confirm Negative ng/mL (<1)
[2023-10-17 12:06] LABS: Buprenorphine Negative ng/mL (Cutoff: 5.0); Norbuprenorphine Negative ng/mL (Cutoff: 2.5)
== END 2023-10-10 09:46 | disposition home or self-care (01) ==
LOC: LBN 09:45
PROVIDERS: Advanced Practice Midwife; PCP Family Medicine; Visit Provider Advanced Practice Midwife
DX: Z34.93 Encounter for supervision of normal pregnancy, unspecified, third trimester (principal); N89.8 Other specified noninflammatory disorders of vagina
CPT/HCPCS: 80307; 80348; 87480; 87510; 87660

== ENCOUNTER 2023-11-30 22:27 | Outpatient (REF) | payer MEDICAID, SELFPAY | END 2023-11-30 22:28 | disposition home or self-care (01) | LOC: LBN 22:27 | PROVIDERS: PCP Family Medicine; Visit Provider Advanced Practice Midwife | DX: Z34.93 Encounter for supervision of normal pregnancy, unspecified, third trimester (principal); Z3A.36 36 weeks gestation of pregnancy | CPT/HCPCS: 87081 ==

== ENCOUNTER 2023-12-06 02:40 | Outpatient (RCR) | payer MEDICAID, SELFPAY ==
[2023-12-06] MEDS: Normal Saline Flush 10 ML SYR IVP (11:02)
[2023-12-06] MEDS: IRON SUCROSE COMPLEX 200 MG in Normal Saline 100 ML 440 MG IVPB (11:34)
== END 2023-12-06 23:59 | disposition home or self-care (01) ==
LOC: INF 02:40
PROVIDERS: PCP Family Medicine; Visit Provider Advanced Practice Midwife
DX: O99.013 Anemia complicating pregnancy, third trimester (principal)
CPT/HCPCS: 96365; J1756

== ENCOUNTER 2023-12-19 01:37 | Outpatient (RCR) | payer MEDICAID, SELFPAY ==
[2023-12-13] MEDS: Normal Saline Flush 10 ML SYR IVP (10:07)
[2023-12-13] MEDS: IRON SUCROSE COMPLEX 200 MG in Normal Saline 100 ML 440 MG IVPB (10:07)
[2023-12-19] MEDS: IRON SUCROSE COMPLEX 200 MG in Normal Saline 100 ML 440 MG IVPB (11:17)
== END 2024-01-05 23:59 | disposition home or self-care (01) ==
LOC: INF 01:37
PROVIDERS: PCP Family Medicine; Visit Provider Advanced Practice Midwife
DX: O99.013 Anemia complicating pregnancy, third trimester (principal)
CPT/HCPCS: 96365; J1756

== ENCOUNTER 2023-12-21 01:57 | Inpatient (IN) | payer MEDICAID, SELFPAY ==
[2023-12-21] VITALS (24 sets, daily range): BP systolic 119–148; BP diastolic 64–87; PULSE 67–98; RESP 16–18; TEMP 36.2–37.5; O2SAT 96–99
[2023-12-21 01:22] LABS: ROM Plus Positive
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
[2023-12-21 03:16] LABS: HCT 33.8 % (36.0-46.0); HGB 11.5 g/dL (11.2-15.7); MCH 32.2 pg (27.0-33.0); MCV 95 fL (80-95); MPV 11.1 fL (8.0-11.0); Platelet Count 199 10^3/uL (130-400); RBC 3.57 10^6/uL (3.93-5.22); RDW 14.1 % (11.7-14.6); RDW-SD 48.4 fL; WBC 8.18 10^3/uL (4.4-10.8)
--- NOTE | 2023-12-21 03:23 | W.OBNST ---
Date of service: 12/21/23 Time of Service: 03:24 NST Evaluation Reason for NST Reasons for Nonstress Test: OTHER, SEE COMMENT Reason for NST Other: SROM and r/o labor Gestational Age Gestational Age in Weeks and Days: 39 Weeks and 2Days Test and Monitor Explained Test/Monitor Explained: Test Explained Vital Signs Blood Pressure: 125/72 Pulse: 78 Temperature: 98.6 F Urine Results Urine Protein: Negative Urine Ketones: Negative Urine Glucose: Negative Urine Blood: Negative NST Information Date on Monitor: 12/21/23 Time on Monitor: 00:52 NST Interventions: None NST Evaluation Patient States Movement: Present FHR Baseline: 130 Variability: Moderate 6-25 bpm Accelerations: 15x15 Decelerations: None NST Results: Reactive Note Ultrasound Done: N/A. NST Note Note: Aviva reported leaking of clear fluid at home. reactive NST. Admitted to inpatient NST Reviewed and Verified by: Alka Harry
[2023-12-21 04:49] LABS: *AMPHETAMINES SCREEN URINE Negative (Negative); *BARBITURATES SCREEN URINE Negative (Negative); *BENZODIAZEPINES SCREEN URINE Negative (Negative); Cannabinoids THC Negative (Negative); Cocaine Screen,Urine Negative (Negative); METHADONE URINE SCREEN Negative (Negative); OPIATES URINE SCREEN Negative (Negative)
[2023-12-21 04:58] LABS: Tricyclic Antidepressants Negative (Negative)
--- NOTE | 2023-12-21 07:44 | W.PM.OBNL1 ---
Date of service: 12/21/23 Time of Service: 07:44 Informed Consent Informed Consent: Risk,Benefits,Alternatives Discussed (cervical ripening or expectant management) Pelvic Exam Dilation: 1 Effacement (%): 25 station: -3 Cervix Position: posterior Consistency: soft Vaginal Exam Presentation: Cephalic Contractions Monitor Mode: External Contraction Frequency(min): irregular Contraction Duration(sec): 50 Intensity: Mild Fetus A Monitor: External (US) Heart Rate Baseline: 130 Variability: Moderate (6-25 BPM) Categories: Category I FHR Rhythm: Regular Accelerations: 15 X 15 Decelerations: None Amniotic Membrane Status: Ruptured Rupture Method: Spontaneous Amniotic Fluid: Clear Date of Membrane Rupture: 12/21/23 Time of Membrane Rupture: 01:00 Assessment and Plan Assessment and plan (1) Prolonged rupture of membranes: Status: Acute Assessment and plan: Discussed induction of labor with Aviva and she wishes to proceed. Will start misoprostol per protocol for cervical ripening. Anticipate . Objective Abnormal lab results 12/21/23 Range/Units 03:05 RBC 3.57 L (3.93-5.22) 10^6/uL Hct 33.8 L (36.0-46.0) % MPV 11.1 H (8.0-11.0) fL Temp Pulse Resp BP Pulse Ox 97.9 F 69 16 124/79 97 12/21/23 03:22 12/21/23 03:22 12/21/23 03:22 12/21/23 03:22 12/21/23 03:22 Laboratory Results WBC 8.18 10^3/uL (4.4-10.8) 12/21/23 03:05 RBC 3.57 10^6/uL (3.93-5.22) L 12/21/23 03:05 Hgb 11.5 g/dL (11.2-15.7) 12/21/23 03:05 Hct 33.8 % (36.0-46.0) L 12/21/23 03:05 MCV 95 fL (80-95) 12/21/23 03:05 MCH 32.2 pg (27.0-33.0) 12/21/23 03:05 MCHC 34.0 % (32.0-36.0) 12/21/23 03:05 RDW 14.1 % (11.7-14.6) 12/21/23 03:05 Plt Count 199 10^3/uL (130-400) 12/21/23 03:05 MPV 11.1 fL (8.0-11.0) H 12/21/23 03:05 Membranes Rupture Positive 12/21/23 00:58 Urine Opiates Screen Negative (Negative) 12/21/23 03:30 Urine Methadone Screen Negative (Negative) 12/21/23 03:30 Ur Barbiturates Screen Negative (Negative) 12/21/23 03:30 Ur Tricyclics Screen Negative (Negative) 12/21/23 03:30 Ur Amphetamines Screen Negative (Negative) 12/21/23 03:30 U Benzodiazepines Scrn Negative (Negative) 12/21/23 03:30 Urine Cocaine Screen Negative (Negative) 12/21/23 03:30 Ur THC Screen Negative (Negative) 12/21/23 03:30 ABO/Rh B Positive 12/21/23 03:05 Antibody Screen NEGATIVE 12/21/23 03:05 Subjective Patient Reports: No new Complaints Interval history since last seen: Aviva slept well and awoke with mild contractions. Results Hemoglobin/Hematocrit: Hgb 11.5 g/dL (11.2-15.7) 12/21/23 03:05 Hct 33.8 % (36.0-46.0) L 12/21/23 03:05 Abnormal Lab Findings: Abnormal Labs 12/21/23 03:05 RBC 3.57 L Hct 33.8 L MPV 11.1 H WW Pocus Exam Exam testing Date/Time of Exam: Date of exam: 12/21/2023 Time of exam: 8:57 am Performing Provider: Alka Harry ZINA Calculator Estimated Delivery Date Method Current WG Current Estimate 12/26/23 Ultrasound #1 39w 2d Other Estimates 12/13/23 LMP (Uncertain) 41w 1d position Gestational age (weeks): 39 Presentation: Vertex Coding for Transabdominal exam: Complete exam
[2023-12-21] MEDS: miSOPROStol 25 MCG TAB 50 MCG PO (10:14)
--- NOTE | 2023-12-21 15:34 | W.PM.OBNL1 ---
Date of service: 12/21/23 Time of Service: 15:34 Informed Consent Informed Consent: Risk,Benefits,Alternatives Discussed (cervical ripening or expectant management) Pelvic Exam Dilation: 2 Effacement (%): 50 station: -1 Cervix Position: mid Consistency: soft Vaginal Exam Presentation: Cephalic Contractions Monitor Mode: External Contraction Frequency(min): every 3 min Contraction Duration(sec): 60 Intensity: Moderate Fetus A Monitor: External (US) Heart Rate Baseline: 130 Presentation: Vertex Variability: Moderate (6-25 BPM) Categories: Category I FHR Rhythm: Regular Accelerations: 15 X 15 Decelerations: None Assessment and Plan Assessment and plan (1) Prolonged rupture of membranes: Status: Acute Assessment and plan: comfort measures discussed. Anticipate . Iwona anthony will be assuming care at 1700 Objective Abnormal lab results 12/21/23 Range/Units 03:05 RBC 3.57 L (3.93-5.22) 10^6/uL Hct 33.8 L (36.0-46.0) % MPV 11.1 H (8.0-11.0) fL Temp Pulse Resp BP Pulse Ox 97.3 F L 85 16 136/85 97 12/21/23 14:15 12/21/23 14:14 12/21/23 03:22 12/21/23 14:14 12/21/23 03:22 Laboratory Results WBC 8.18 10^3/uL (4.4-10.8) 12/21/23 03:05 RBC 3.57 10^6/uL (3.93-5.22) L 12/21/23 03:05 Hgb 11.5 g/dL (11.2-15.7) 12/21/23 03:05 Hct 33.8 % (36.0-46.0) L 12/21/23 03:05 MCV 95 fL (80-95) 12/21/23 03:05 MCH 32.2 pg (27.0-33.0) 12/21/23 03:05 MCHC 34.0 % (32.0-36.0) 12/21/23 03:05 RDW 14.1 % (11.7-14.6) 12/21/23 03:05 Plt Count 199 10^3/uL (130-400) 12/21/23 03:05 MPV 11.1 fL (8.0-11.0) H 12/21/23 03:05 Membranes Rupture Positive 12/21/23 00:58 Urine Opiates Screen Negative (Negative) 12/21/23 03:30 Urine Methadone Screen Negative (Negative) 12/21/23 03:30 Ur Barbiturates Screen Negative (Negative) 12/21/23 03:30 Ur Tricyclics Screen Negative (Negative) 12/21/23 03:30 Ur Amphetamines Screen Negative (Negative) 12/21/23 03:30 U Benzodiazepines Scrn Negative (Negative) 12/21/23 03:30 Urine Cocaine Screen Negative (Negative) 12/21/23 03:30 Ur THC Screen Negative (Negative) 12/21/23 03:30 ABO/Rh B Positive 12/21/23 03:05 Antibody Screen NEGATIVE 12/21/23 03:05 Subjective Patient Reports: No new Complaints Interval history since last seen: Aviva is feeling stronger contractions. Aviva is coping well with contractions and sitting in bed. Results Hemoglobin/Hematocrit: Hgb 11.5 g/dL (11.2-15.7) 12/21/23 03:05 Hct 33.8 % (36.0-46.0) L 12/21/23 03:05 Abnormal Lab Findings: Abnormal Labs 12/21/23 03:05 RBC 3.57 L Hct 33.8 L MPV 11.1 H
[2023-12-21] MEDS: fentaNYL 100 MCG/2 ML VIAL 25 MCG IM (16:30)
[2023-12-21] MEDS: Normal Saline Flush 10 ML SYR IVP (16:40)
[2023-12-21] MEDS: Acetaminophen 325 MG TAB 650 MG PO (19:03)
[2023-12-21] MEDS: Ibuprofen 600 MG TAB PO (20:41)
[2023-12-22] MEDS: Acetaminophen 325 MG TAB 650 MG PO ×3 (02:58→18:07)
[2023-12-22] MEDS: Ibuprofen 600 MG TAB PO ×2 (07:43→18:08)
[2023-12-22 08:06] VITALS: BP 110/84; PULSE 78; RESP 20; TEMP 36.7; O2SAT 97
--- NOTE | 2023-12-22 10:17 | W.PM.OBPNV1 ---
Date of service: 12/22/23 Time of Service: 10:17 Assessment and Plan Assessment and plan (1) Term delivered: Status: Acute Assessment and plan: A: PPD#1, nml recovery, pleased with experience off to a good start P: Pt hopes for discharge @ 24 hrs PP tonight Planning POP's for BCM Written instructions reviewed and given to pt F/up at 2 and 6 wks Subjective Subjective Patient comments: No complaints, Pain well controlled, Tolerating diet and Flatus present Patient's Mood: happy baby status: Doing well, Nursing well, Rooming in and Strong Bonding Observed feeding status: Exclusively breast feeding Exam Physical Exam Vital signs: Temp Pulse Resp BP Pulse Ox 98.1 F 78 20 110/84 97 12/22/23 08:06 12/22/23 08:06 12/22/23 08:06 12/22/23 08:06 12/22/23 08:06 Vital Signs Reviewed: Yes Constitutional Constitutional: no acute distress and average body habitus HEENT Exam HEENT Exam: Normal Neck Exam Neck Exam: Normal Breast Exam Bilateral: Breast Exam: Normal and Soft Nipple Exam: Normal and Uninjured Respiratory Exam Respiratory Exam: Normal Cardiovascular Exam Cardiovascular Exam: Normal Abdominal Exam Abdomen: Other (soft, nontender) Fundal Exam Fundus: Below Umbilicus and Firm Rectal Exam Rectal Exam: Normal Exam Perineum: Intact Extremities Exam Extremity Exam: Normal, Full ROM and Warm to Touch Back/Spine/Pelvis Exam Back Exam: Normal Skin Exam Skin Exam: Normal Neurological Exam Neurological Exam: Normal Psychiatric Exam Psychiatric Exam: Normal
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
[2023-12-24 10:39] LABS: Fentanyl Scr w/Rfx Confirm Negative ng/mL (<1)
[2023-12-24 12:13] VITALS: BP 109/68; PULSE 103
--- NOTE | 2023-12-24 15:44 | W.OBDELIVERY ---
Date of service: 12/21/23 Time of Service: 15:44 OB Labor/ Delivery Information Baby A Delivery Delivery Method: Spontaneaous Presentation: Cephalic Cephalic Position: Vertex Vertex Position: Right Occipital Anterior Cord Description-Baby A: 3 Vessels Amniotic Fluid: Clear Estimated Blood Loss: 250 Delivery Outcome: Liveborn Transferred: Remains with Mother Note: Aviva got into the tub for comfort with good effect. She requested medication and an IV was started and she received fentanyl 25 mcg IV. FHTs 130s during first stage of labor. FHTs 130s in second stage. She progressed to full dilation and began pushing. Second stage huddle was done. Spontaneous delivery of female infant delivered in GINO position. Baby was brought immediately to the surface and placed in mother's arms in the water. Spontaneous cry. Cord was clamped and cut by the baby's father. Aviva was transferred to the bed and the placenta delivered spontaneously and appears to by intact with a three vessel cord. Pitocin 10 units was administered before delivery of the placenta. The perineum was inspected and a small perineal laceration was repaired with one suture. The baby did breastfeed. After delivery, Mother and baby and father of the baby were stable and bonding well in the delivery room and there were no complications. Providers Nurse Public Safety Director: Alka Harry Nurse: Melania Grant Nurse: Ho Resendez Labor/Delivery Information Number of Babies in Womb: 1 Steroids Given: None Reason Steroids Not Administered: N/A Group Beta Strep: Negative Antibiotics Administered: No Rubella Status: Immune Blood Type: B+ Varicella Immunity: Immune Medication in Delivery: Fentanyl Born En Route: No Maternal Complications: Precipitous Labor(<3hrs) Shoulder Dystocia: No Stages of Labor Onset of Labor Date: 12/20/23 Onset of Labor Time: 23:46 Complete Dilatation Date: 12/21/23 Complete Dilatation Time: 16:43 Labor - Stage 1 Duration: 16 hours and 57 minutes ROM Baby A: 12/21/23 ROM Baby A: 01:00 ROM Total Time- Baby A: [id number] Infant Delivery Date-Baby A: 12/21/23 Delivery Time-Baby A: 16:48 Labor Stage 2 Duration: 5 minutes Placenta Delivery Date-Baby A: 12/21/23 Placenta Delivery Time-Baby A: 16:57 Labor-Stage 3 Duration: 9 minutes Total Length of Labor-Baby A: 17 hours and 2 minutes Placenta Cultured: No Placenta Status: Delivered Baby A Gender: Female Gestational Status: Term (39-41.6 wks) Gestational Age in Weeks/Days: 39 Weeks and 2 Days weight: 7 lb 2.288 oz Length-Baby A: 19 in Head Circumference-Baby A: 13 in Score-1 Minute Interval(Baby A) Heart Rate-1 minute: 100 BPM or Greater Respiratory Effort- 1 minute: Spontaneous/Strong Cry Muscle Tone-1 minute: Active Movement Reflex Response-1 minute: Minimal Response Color-1 minute: Pallor or Cyanosis Total Score-1 minute: 7 Score-5 Minute Interval(Baby A) Heart Rate- 5 minute: 100 BPM or Greater Respiratory Effort-5 minute: Spontaneous/Strong Cry Muscle Tone-5 minute: Active Movement Reflex Response-5 minute: Prompt Response Color-5 minute: Bluish Hands or Feet Total Score- 5 minute: 9
[2023-12-27 14:25] LABS: Buprenorphine Negative ng/mL (Cutoff: 5.0)
== END 2023-12-22 19:10 | disposition home or self-care (01) | DRG 806 ==
LOC: OBS 09:38
PROVIDERS: Admitting Provider Advanced Practice Midwife; PCP Family Medicine; Visit Provider Advanced Practice Midwife
DX: O42.02 Full-term premature rupture of membranes, onset of labor within 24 hours of rupture (principal); O99.324 Drug use complicating childbirth; Z37.0 Single live birth; Z3A.39 39 weeks gestation of pregnancy; F12.90 Cannabis use, unspecified, uncomplicated; O99.02 Anemia complicating childbirth; D64.9 Anemia, unspecified
CPT/HCPCS: 59025; 36415; 80307; 80348; 84112; 85027; 86850; 86900; 86901; J3010; J3490